=== PATIENT | female | born 1940 | race Caucasian/White ===

== ENCOUNTER 2022-10-11 15:00 | Outpatient (RCR) | payer MEDICARE, BC, SELFPAY | END 2022-11-27 12:14 | disposition home or self-care (01) | PROVIDERS: PCP Internal Medicine; Visit Provider Family Medicine | DX: N39.46 Mixed incontinence (principal); Z51.89 Encounter for other specified aftercare | CPT/HCPCS: 97110; 97140; 97162; 97535 ==

== ENCOUNTER 2024-03-05 09:15 | Outpatient (RCR) | payer MEDICARE, BC, SELFPAY | END 2024-03-05 13:10 | disposition home or self-care (01) | PROVIDERS: PCP Family Medicine; Visit Provider Family Medicine | DX: M25.551 Pain in right hip (principal); M25.561 Pain in right knee; M79.604 Pain in right leg; M51.26 Other intervertebral disc displacement, lumbar region; Z51.89 Encounter for other specified aftercare | CPT/HCPCS: 97110; 97140; 97161; 97530; 97535 ==

== ENCOUNTER 2025-02-06 12:34 | Outpatient (CLI) | payer MEDICARE, BC, SELFPAY ==
--- NOTE | 2025-02-06 13:37 | P.ANES_ITS ---
Anesthesia Charges Start Date/Time Anesthesia Start Date: 02/06/25 Anesthesia Start Time: 14:33 Stop Date/Time Anesthesia Stop Date: 02/06/25 Anesthesia Stop Time: 14:47 Summary Extremes of Age - Over 70 or under 1: MDA Coding CPT Codes CPT Codes: ANES UPR GI NDSC PX NOS - 65530 ([id number]) P2 - PATIENT W/MILD SYST DISEASE, QK - SUPERVISING NURSE 2-4 CNCRNT ANES PROC, QX - ENDOSCOPY REGISTERED NURSE SVC W/ MD MED DIRECTION Additional Codes: Summary - Extremes of Age - Over 70 or under 1: MDA ([id number])
--- NOTE | 2025-02-06 13:37 | W.ANESCHARGE ---
Anesthesia Charges Start Date/Time Anesthesia Start Date: 02/06/25 Anesthesia Start Time: 14:33 Stop Date/Time Anesthesia Stop Date: 02/06/25 Anesthesia Stop Time: 14:47 Summary Extremes of Age - Over 70 or under 1: MDA Coding CPT Codes CPT Codes: ANES UPR GI NDSC PX NOS - 95890 ([id number]) P2 - PATIENT W/MILD SYST DISEASE, QK - MASTER RIGGER 2-4 CNCRNT ANES PROC, QX - DELIVERY REP SVC W/ MD MED DIRECTION Additional Codes: Summary - Extremes of Age - Over 70 or under 1: MDA ([id number])
--- NOTE | 2025-02-06 14:48 | P.ANES_ITS ---
Anesthesia Charges Start Date/Time Anesthesia Start Date: 02/06/25 Anesthesia Start Time: 14:33 Stop Date/Time Anesthesia Stop Date: 02/06/25 Anesthesia Stop Time: 14:47 Summary Extremes of Age - Over 70 or under 1: ELL TEACHER Coding CPT Codes CPT Codes: ANES UPR GI NDSC PX NOS - 50933 ([id number]) P2 - PATIENT W/MILD SYST DISEASE, QK - PRODUCT SPECIALIST 2-4 CNCRNT ANES PROC, QX - ELL TEACHER SVC W/ MD MED DIRECTION Additional Codes: Summary - Extremes of Age - Over 70 or under 1: ELL TEACHER ([id number])
--- NOTE | 2025-02-06 14:48 | W.ANESCHARGE ---
Anesthesia Charges Start Date/Time Anesthesia Start Date: 02/06/25 Anesthesia Start Time: 14:33 Stop Date/Time Anesthesia Stop Date: 02/06/25 Anesthesia Stop Time: 14:47 Summary Extremes of Age - Over 70 or under 1: SECURITY RESEARCHER Coding CPT Codes CPT Codes: ANES UPR GI NDSC PX NOS - 98021 ([id number]) P2 - PATIENT W/MILD SYST DISEASE, QK - REIMBURSEMENT ANALYST 2-4 CNCRNT ANES PROC, QX - SECURITY RESEARCHER SVC W/ MD MED DIRECTION Additional Codes: Summary - Extremes of Age - Over 70 or under 1: SECURITY RESEARCHER ([id number])
== END 2025-02-06 12:35 | disposition home or self-care (01) ==
LOC: OP CLINIC 12:37
PROVIDERS: PCP Family Medicine; Visit Provider Internal Medicine Gastroenterology
DX: R10.13 Epigastric pain (principal); K44.9 Diaphragmatic hernia without obstruction or gangrene; K21.00 Gastro-esophageal reflux disease with esophagitis, without bleeding
CPT/HCPCS: 00731; 43239; 88305; 99100; J2704; J3490